=== PATIENT | female | born 1960 | race Caucasian/White ===

== ENCOUNTER 2019-10-12 10:30 | Inpatient (IN) | payer OTHER ==
[2019-10-12] MEDS ORDERED: ZESTORETIC 10-1 EACH PO (11:24)
[2019-10-12] MEDS ORDERED: LIPITOR PO (11:24)
[2019-10-12] MEDS ORDERED: SYNTHROID88 MCG PO (11:24)
[2019-10-12] MEDS ORDERED: VOLTAREN PO (11:25)
[2019-10-12] MEDS ORDERED: DEPAKOTE ER500 MG PO (11:26)
[2019-10-12] MEDS ORDERED: KEPPRA750 MG PO (11:26)
[2019-10-12] MEDS ORDERED: VALIUM PO (11:27)
[2019-10-12] MEDS ORDERED: AMITRIPTYLINE H50 MG PO (11:28)
[2019-10-12] MEDS ORDERED: RESTORIL30 MG PO (11:28)
[2019-10-12] MEDS ORDERED: CLONAZEPAM2 MG PO (11:29)
[2019-10-12] MEDS ORDERED: XANAX2 MG PO (11:29)
[2019-10-17] MEDS ORDERED: DICLOFENAC SODI75 MG PO (09:39)
[2019-10-17] MEDS ORDERED: ATORVASTATIN CA10 MG PO (09:39)
[2019-10-17] MEDS ORDERED: CITALOPRAM HBR20 MG PO (09:40)
[2019-10-17] MEDS ORDERED: ESTAZOLAM2 MG PO (09:40)
[2019-10-17] MEDS ORDERED: DIAZEPAM10 MG PO (09:41)
[2019-10-17] MEDS ORDERED: BACLOFEN20 MG PO (09:41)
[2019-10-17] MEDS ORDERED: RAZADYNE ER16 MG PO (09:42)
[2019-10-17] MEDS ORDERED: CITALOPRAM HBR10 MG (09:42)
[2019-10-19] MEDS ORDERED: ELIQUIS2.5 MG PO (18:26)
[2019-10-19] MEDS ORDERED: CIPRO500 MG PO (18:26)
[2019-10-19] MEDS ORDERED: PERCOCET 5-3251 EACH PO (18:26)
== END 2019-10-19 21:57 | disposition home or self-care (01) | DRG 470 ==
LOC: SURG 10-17 05:40 → O/R 10-17 05:40 → SURH 10-17 09:45 → O/R 10-17 10:30 → SURH 10-17 10:30 → SURG 10-17 16:10
PROVIDERS: ADMIT Orthopaedic Surgery; ATTEND Orthopaedic Surgery
PROC: 0SRB02Z Replacement of Left Hip Joint with Metal on Polyethylene Synthetic Substitute, Open Approach (ICD-10-PCS; principal; 2019-10-17 09:45)
DX: M16.12 Unilateral primary osteoarthritis, left hip (principal); D62 Acute posthemorrhagic anemia; E66.01 Morbid (severe) obesity due to excess calories; I10 Essential (primary) hypertension; G47.33 Obstructive sleep apnea (adult) (pediatric); G40.909 Epilepsy, unspecified, not intractable, without status epilepticus